=== PATIENT | male | born 1970 | race Caucasian/White ===

== ENCOUNTER 2019-05-10 13:17 | Inpatient (IN) ==
[2019-05-10] MEDS ORDERED: Isovue-370 500 ML BOTTLE IVP ONE (13:52)
[2019-05-10] MEDS ORDERED: 0.9 % Sodium Chloride 1,000 ML IVC ONE (13:52)
[2019-05-10] MEDS ORDERED: *HR* FentaNYL (PF) 100 MCG/2 ML VIAL IVP ONE ×2 (13:59→16:10)
--- NOTE | 2019-05-10 14:05 | Emergency Department Note ---
Disposition Clinical Impression: Lumbar back pain, Neurological deficit present Disposition: Admitted As Inpatient Condition: Good Referrals: NONE,PCP [Primary Care Provider] - Time of Disposition: 17:33 General Adult HPI - General Chief complaint: ED Neuro Symptoms/Deficit Stated complaint: back pain, L N/T Time Seen by Provider: 05/10/19 13:40 Source: patient Mode of arrival: ambulatory Limitations: no limitations Nursing Notes Reviewed: Yes Vital Signs Reviewed: Yes - History of Present Illness HPI Narrative: Patient is a 49-year-old male that presents emergency Department with reports of chronic low back pain. Patient states he is also had pain down into his left leg. Patient states that this is gotten worse. Patient states that he had a fall a few days ago and his pain has gotten worse since then. Patient states that he has had a prior lumbar surgery with pins, screws and a plate. Patient states that he is also having some numbness to his left upper hand. Patient denies hitting his head or any loss of consciousness during assault. Patient denies being on any blood thinners. Patient states that he has not had any loss of bowel or bladder control. Pain Scale: 9 - Related Data Allergies Allergy/AdvReac Type Severity Reaction Status Date / Time codeine Allergy Anaphylaxis Verified 05/10/19 14:09 Iodinated Contrast Media Allergy Seizure Verified 05/10/19 14:09 Penicillins Allergy Anaphylaxis Verified 05/10/19 14:09 All systems ED: reviewed and negative except as stated. Constitutional: Denies: fever Cardiovascular: Denies: chest pain Respiratory: Denies: dyspnea Gastrointestinal: Denies: abdominal pain, nausea, vomiting Genitourinary: Denies: urgency, dysuria, frequency, hematuria Neurological: Reports: numbness (Left hand and left lower extremity.) Past Medical History - Past Medical History Medical history: Reports: non-contributory Psychiatric history: Reports: bipolar, PTSD - Social History Smoking Status: Current some day smoker Alcohol use: Reports: none Drug use: Reports: none Physical Exam - General Limitations: no limitations General appearance: alert, in no apparent distress - Head Head exam: atraumatic, normocephalic - Eye Eye exam: Present: normal appearance, EOMI - Neck Neck exam: Present: normal inspection, full ROM, trachea midline - Respiratory Respiratory exam: Present: normal lung sounds bilaterally. Absent: respiratory distress, wheezes - Cardiovascular Cardiovascular exam: Present: regular rate, normal rhythm, normal heart sounds, +S1, +S2 - Abdominal Exam Abdominal exam: Present: soft, Non-Tender, normal bowel sounds - Neurological Exam Neurological exam: Present: alert, oriented X3 - Expanded Neurological Exam Cranial nerves: EOM function (II, III, IV, ): Normal, facial sensation (V): Normal, facial palsy (VII): Normal, gag reflex (IX): Normal, spinal accessory function (XI): Normal, tongue deviation (XII): Normal Cerebellar function: finger to nose: Normal, heel to sandra: Abnormal Left Motor strength - LUE: 4/5 Motor strength - RUE: 5/5 Motor strength - LLE: 4/5 Motor strength - RLE: 5/5 Upper motor neuron exam: pronator drift: Absent bilaterally Sensory exam upper extremity: light touch: Abnormal Left Sensory exam lower extremity: light touch: Abnormal Left Coma Scale Eye Opening: Spontaneous Coma Scale Motor Response: Obeys Commands Coma Scale Verbal Response: Oriented Coma Scale Total: 15 - Psychiatric Psychiatric exam: Present: normal affect, normal mood - Skin Skin exam: Present: warm, dry, intact Course Vital Signs Temperature 98.4 F 05/10/19 13:33 Pulse Rate 112 05/10/19 13:33 Respiratory Rate 18 05/10/19 13:33 Blood Pressure 155/103 05/10/19 13:33 O2 Sat by Pulse Oximetry 92 05/10/19 13:33 Temperature 98.4 F 05/10/19 13:33 Pulse Rate 92 05/10/19 17:58 Respiratory Rate 17 05/10/19 17:58 Blood Pressure 151/86 05/10/19 17:58 O2 Sat by Pulse Oximetry 97 05/10/19 17:58 Oxygen Delivery Oxygen Delivery Room Air Medical Decision Making - MDM Narrative Medical decision making narrative: Due the patient presenting to the emergency department with reports of back pain and numbness in the left lower extremity and left upper a tremulous obtain basic laboratory testing, CT the head and a CT of the lumbar spine. We will also obtain a CT of the cervical spine at the request of the hospitalist. All imaging was negative for acute findings. Laboratory testing was relatively unremarkable. EKG did not show any acute ischemic changes. Patient had weakness and decreased sensation of the upper and lower extremity on the left. Patient is otherwise stable without any complaints. Patient will require admission to the hospital for further neuro workup. Patient has received multiple doses of analgesics here in the emergency department. His requested a meal tray this will be ordered. Patient was accepted by Dr. Mark. - Medical Records Medical records reviewed: Yes I reviewed the patient's medical records. - Lab Data Lab results reviewed: Yes I reviewed the patient's lab results. Result diagrams: 05/10/19 14:44 05/10/19 14:44 Lab Results 05/10/19 05/10/19 05/10/19 Range/Units 14:44 14:44 14:44 WBC 9.0 (4.3-11.1) K/mcL RBC 4.66 (4.19-5.50) M/mcL Hgb 13.4 (12.9-16.9) g/dL Hct 42.8 (37.5-50.1) % MCV 91.8 (83.0-100.0) fL MCH 28.8 (28.0-33.3) pg MCHC 31.3 L (31.6-35.5) g/dL RDW 13.2 (11.5-14.5) % Plt Count 289 (140-400) K/mcL MPV 9.8 (9.4-12.4) fL PT 10.0 (9.4-12.1) Seconds INR 0.9 APTT 32.3 (26.0-36.0) Seconds Sodium 136 (136-145) mEq/L Potassium 4.2 (3.5-5.1) mEq/L Chloride 104 (98-107) mEq/L Carbon Dioxide 26 (23-29) mEq/L BUN 17 (6-20) mg/dL Creatinine 0.67 L (0.70-1.30) mg/dL Est GFR ( Amer) > 60 (> 60) Est GFR (Non-Af Amer) > 60 (> 60) BUN/Creatinine Ratio 25 (6-26) Glucose 122 H (70-105) mg/dL Calculated Osmolality 285 (280-300) Calcium 9.8 (8.6-10.3) mg/dL Troponin I < 0.03 (< 0.04) ng/mL - Radiology Data Radiology results reviewed: Yes I reviewed the patient's radiology results. Lumbar Spine CT 05/10/19 13:56 IMPRESSION: Compression deformity status post vertebral body augmentation involving T12 through L3. Age-indeterminate subtle compression at L4. Status post posterior spinal fusion at L5-S1. No acute intracranial pathology. No intracranial hemorrhage, mass effect, or midline shift. D/ / Demond Barrera MD / Demond Barrera MD Interpreting Provider: Demond Barrera MD Head CT 05/10/19 13:59 IMPRESSION: Compression deformity status post vertebral body augmentation involving T12 through L3. Age-indeterminate subtle compression at L4. Status post posterior spinal fusion at L5-S1. No acute intracranial pathology. No intracranial hemorrhage, mass effect, or midline shift. D/ / Demond Barrera MD / Demond Barrera MD Interpreting Provider: Demond Barrera MD Cervical Spine CT 05/10/19 16:10 IMPRESSION: No acute abnormality of the cervical spine. No acute significant degenerative changes, no canal or foraminal stenosis D/ / John Morelos MD / John Morelos MD Interpreting Provider: John Morelos MD - EKG Data EKG #1 EKG attestation: Yes I reviewed and interpreted this EKG. EKG results narrative: Patient's EKG showed sinus tachycardia at a rate of 106 bpm, NV interval 159, QRS duration 78, QTc of 431. There is no evidence of STEMI on EKG. Attestation Statement - Attestation Attestation: I, Albert Ramirez, examined this patient and my medical decision-making was reviewed with the PEELER OPERATOR/PA/Advanced Practice Nurse/Resident Physician. I agree with the documented findings, disposition and treatment plan as described except to the extent set forth below. 49-year-old male presents emergency Department with concerns of left upper extremity and left lower extremity weakness. He also reports having a fall within the past week and had worsening of his back pain since that time. He does have a history of chronic back pain and status post lumbar spine surgery. Patient denies incontinence of bowel or bladder, he denies lack of sensation in the perineal area or of the left lower show any. He does report having weakness of the left upper and left lower extremity. He is still able ambulate despite the pain. Patient has a history of IV drug use however this is not within the past year. CT of the head was negative for acute fracture or intracranial hemorrhage. CT of the cervical and lumbar spine was negative for acute fracture. Patient will require further evaluation with MRI of the head for possible stroke versus MRI of the lumbar spine for further evaluation of possible disc herniation. Unlikely that the patient has cauda equina without evidence of urinary or bowel incontinence. Cauda equina symptoms would not cause of left upper extremity and left lower extremity weakness. Patient will be admitted to the hospitalist for further care and evaluation. Patient was updated regarding his results.I reviewed the EKG with the resident and agree with the interpretation.
[2019-05-10 15:00] LABS: Hematocrit 42.8 % (37.5-50.1); Hemoglobin 13.4 g/dL (12.9-16.9); Mean Corpuscular HGB Conc 31.3 g/dL (31.6-35.5); Mean Corpuscular Hemoglobin 28.8 pg (28.0-33.3); Mean Corpuscular Volume 91.8 fL (83.0-100.0); Mean Platelet Volume 9.8 fL (9.4-12.4); Platelet Count 289 K/mcL (140-400); Red Blood Count 4.66 M/mcL (4.19-5.50); Red Cell Distribution Width 13.2 % (11.5-14.5)
[2019-05-10 15:09] LABS: INR 0.9
[2019-05-10 15:12] LABS: Activated Partial Thrombo Time 32.3 Seconds (26.0-36.0)
[2019-05-10 15:19] LABS: BUN/Creatinine Ratio 25 (6-26); Blood Urea Nitrogen 17 mg/dL (6-20); Calcium 9.8 mg/dL (8.6-10.3); Carbon Dioxide 26 mEq/L (23-29); Chloride 104 mEq/L (98-107); Glucose 122 mg/dL (70-105); Osmolality,Calculated 285 (280-300); Potassium 4.2 mEq/L (3.5-5.1); Sodium 136 mEq/L (136-145); eGFR For African Americans > 60 (> 60); eGFR For Non-African Americans > 60 (> 60)
[2019-05-10 15:20] LABS: Troponin I < 0.03 ng/mL (< 0.04)
[2019-05-10] MEDS ORDERED: Naloxone 0.4 MG/ML INJ IVP PRN (17:28)
[2019-05-10] MEDS ORDERED: Ondansetron 4 MG/2 ML VIAL IVP PRN (17:28)
[2019-05-10] MEDS ORDERED: Acetaminophen 325 MG TABLET PO PRN (17:30)
[2019-05-10] MEDS ORDERED: Morphine Sulfate 2 MG/ML SYRINGE IVP PRN (17:52)
[2019-05-10] MEDS ORDERED: Ipratropium/Albuterol Neb 3 ML IH PRN (17:53)
--- NOTE | 2019-05-10 18:00 | Internal Med History&Physical ---
Date of Encounter: 05/10/19 Time of Encounter: 18:00 Internal Medicine - H&P: HPI Chief complaint: severe back pain, tingling and numbness of fingers and toes on left side History of present illness: Mr. Meredith is a 49 year old male with pmh of tobacco abuse, chronic back pain with old compression fractures presenting with complaints of intractable back pain and tingling in the fingers and toes on his left side for the past 1 week. Patient says he has had compression fractures in the past due to osteopenia and last surgery was in 2015. He reports falling about 7 days ago after he stepped into a hole on the road and since then he began to notice tingling in the fi ngers of his left hand which has progressed to a numbness. He also complains of severe low back pain with any activity. He denies any other acute symptoms. In the ER, a CT showed Chronic compression deformities with loss of height at T12, L1, L2, and L3. Status post vertebral body augmentation of the aforementioned vertebral bodies. There is cement leak into the intervertebral disc spaces at L1-L2 and L3-L4. Subtle compression at L4, age indeterminate. Patient is being admitted for pain control and assessment by spine surgery Past Med Surg Social Fam HX - Past Medical History Medical history: non-contributory Psychiatric history: bipolar, PTSD - Social History Smoking Status: Current some day smoker Alcohol use: none Drug use: none Internal Medicine - H&P: Meds Allergy/AdvReac Type Severity Reaction Status Date / Time codeine Allergy Anaphylaxis Verified 05/10/19 14:09 Iodinated Contrast Media Allergy Seizure Verified 05/10/19 14:09 Penicillins Allergy Anaphylaxis Verified 05/10/19 14:09 All Systems PM: A 10-system review of systems was performed and is negative for pertinent findings except as documented above in the HPI. - Constitutional Constitutional: no chills, no fever(s), no night sweats - EENT Eyes: no change in vision, no discharge, no pain, no photophobia Ears: no ear discharge, no ear pain, no tinnitus Nose, mouth and throat: no dysphagia, no nasal discharge, no neck pain, no sore throat - Cardiovascular Cardiovascular ROS IM: no chest pain, no diaphoresis, no dyspnea, no lightheadedness, no palpitations, no syncope - Respiratory Respiratory: no cough, no dyspnea, no wheezing, no excessive phlegm production - Gastrointestinal Gastrointestinal: no abdominal pain, no diarrhea, no hematemesis, no hematochezia, no melena, no nausea, no vomiting - Musculoskeletal Musculoskeletal ROS IM: back pain, no numbness, no tingling - Integumentary Integumentary IM: no rash, no unusual bruising - Neurological Neurological ROS: tingling, no confusion, no convulsions, no focal weakness, no numbness, no tremor(s) - Hematologic/Lymphatic Hematologic/Lymphatic: no easy bruising - Constitutional Vitals: Temp Pulse Resp BP Pulse Ox 98.4 F 112 18 155/103 92 05/10/19 13:33 05/10/19 13:33 05/10/19 13:33 05/10/19 13:33 05/10/19 13:33 Exam: NAD - Head Head exam: Present: atraumatic, normocephalic - Eye Eye exam: Present: PERRL, conjuntiva pink, sclera anicteric Pupils: Present: PERRL - Neck Neck exam general surgery: Present: supple, trachea midline. Absent: lymphadenopathy - Respiratory Respiratory exam: Present: CTAB. Absent: accessory muscle use, rales, rhonchi, wheezes - Cardiovascular Cardiovascular exam: Present: RRR, +S1, +S2. Absent: diastolic murmur, gallop, rubs, systolic murmur - GI/Abdominal GI/Abdominal exam: Present: normal bowel sounds, soft, no peritoneal signs. Absent: distended, tenderness - Extremities Exam Extremities exam: Present: warm, radial pulses palpable and symmetrical. Absent: calf tenderness, cyanotic, pedal edema - Neurological Exam Neurological exam: Present: CN II-XII intact, oriented X3, no focal deficits. Absent: pronater drift, facial droop, speech deficit - Skin Skin exam: Present: dry, intact Internal Med - H&P Results - Labs CBC & Chem 7: 05/10/19 14:44 05/10/19 14:44 Labs: Short CBC 05/10/19 Range/Units 14:44 WBC 9.0 (4.3-11.1) K/mcL Hgb 13.4 (12.9-16.9) g/dL Hct 42.8 (37.5-50.1) % Plt Count 289 (140-400) K/mcL BMP 05/10/19 14:44 Sodium 136 Potassium 4.2 Chloride 104 Carbon Dioxide 26 BUN 17 Creatinine 0.67 L Glucose 122 H Calcium 9.8 Cardiac Enzymes 05/10/19 Range/Units 14:44 Troponin I < 0.03 (< 0.04) ng/mL - Impressions ITS Impressions Lumbar Spine CT 05/10/19 13:56 IMPRESSION: Compression deformity status post vertebral body augmentation involving T12 through L3. Age-indeterminate subtle compression at L4. Status post posterior spinal fusion at L5-S1. No acute intracranial pathology. No intracranial hemorrhage, mass effect, or midline shift. D/ / Demond Barrera MD / Demond Barrera MD Interpreting Provider: Demond Barrera MD Head CT 05/10/19 13:59 IMPRESSION: Compression deformity status post vertebral body augmentation involving T12 through L3. Age-indeterminate subtle compression at L4. Status post posterior spinal fusion at L5-S1. No acute intracranial pathology. No intracranial hemorrhage, mass effect, or midline shift. D/ / Demond Barrera MD / Demond Barrera MD Interpreting Provider: Demond Barrera MD Cervical Spine CT 05/10/19 16:10 IMPRESSION: No acute abnormality of the cervical spine. No acute significant degenerative changes, no canal or foraminal stenosis D/ / John Morelos MD / John Morelos MD Interpreting Provider: John Morelos MD - Assessment and Plan (1) Lumbar back pain Current Visit: Yes Status: Acute Assessment and plan: Pt has complaints of low back pain with tingling and numbness in fingers and toes on left side CT showed Chronic compression deformities with loss of height at T12, L1, L2, and L3. Status post vertebral body augmentation of the aforementioned vertebral bodies. There is cement leak into the intervertebral disc spaces at L1-L2 and L3-L4. Subtle compression at L4, age indeterminate. Pain control as needed, spine consulted. Obtain MRI spine to r/o new vertebral body fractures s/p fall (2) Preoperative clearance Current Visit: Yes Status: Acute Assessment and plan: Pt has good functional status with METS> 4. Can proceed for surgery if indicated at low risk. No further cardiovascular testing indicated (3) DVT prophylaxis Current Visit: Yes Status: Acute Assessment and plan: heparin sc - Time Spent With Patient Total time spent is greater than 50% in coordination of care (as documented) at patient's floor/unit and/or counseling patient:
[2019-05-10] MEDS: 0.9 % Sodium Chloride 1,000 ML IVC SCH (21:22)
[2019-05-10] MEDS: *HR* OxyCODONE/APAP 5/325 TABLET PO PRN (21:22)
[2019-05-10] MEDS: *HR* Heparin 5,000 UNIT/ML VIAL SQ SCH (21:27)
[2019-05-11] MEDS: *HR* OxyCODONE/APAP 5/325 TABLET PO PRN ×5 (04:32→22:20)
[2019-05-11] MEDS: *HR* Heparin 5,000 UNIT/ML VIAL SQ SCH ×2 (04:32→18:11)
[2019-05-11 06:10] LABS: Basophils # 0.1 K/mcL (0.0-0.2); Basophils % 0.8 %; Eosinophils # 0.4 K/mcL (0.0-0.6); Eosinophils % 4.9 %; Hematocrit 42.2 % (37.5-50.1); Hemoglobin 13.1 g/dL (12.9-16.9); Immature Granulocytes % 0.9 % (0-4); Lymphocytes # 2.2 K/mcL (0.6-4.6); Lymphocytes % 29.6 %; Mean Corpuscular Hemoglobin 29.2 pg (28.0-33.3); Mean Corpuscular Volume 94.2 fL (83.0-100.0); Mean Platelet Volume 9.7 fL (9.4-12.4); Monocytes % 13.6 %; Neutrophils # 3.7 K/mcL (1.6-8.9); Platelet Count 276 K/mcL (140-400); Red Blood Count 4.48 M/mcL (4.19-5.50); Red Cell Distribution Width 13.3 % (11.5-14.5); Segmented Neutrophils % 50.2 %; White Blood Count 7.4 K/mcL (4.3-11.1)
[2019-05-11 06:28] LABS: BUN/Creatinine Ratio 27 (6-26); Blood Urea Nitrogen 17 mg/dL (6-20); Carbon Dioxide 23 mEq/L (23-29); Chloride 105 mEq/L (98-107); Glucose 116 mg/dL (70-105); Magnesium 1.7 mg/dL (1.6-2.6); Osmolality,Calculated 289 (280-300); Phosphorous 3.9 mg/dL (2.7-4.5); Potassium 4.3 mEq/L (3.5-5.1); Sodium 138 mEq/L (136-145); eGFR For African Americans > 60 (> 60); eGFR For Non-African Americans > 60 (> 60)
[2019-05-11] MEDS: 0.9 % Sodium Chloride 1,000 ML IVC SCH ×2 (06:44→18:48)
--- NOTE | 2019-05-11 10:08 | Internal Med Progress Note ---
Hospitalist Progress Note - Encounter Date of Encounter: 05/11/19 Time of Encounter: 09:00 - Subjective Interval History: No acute events overnight - Exam Vitals: Temp Pulse Resp BP Pulse Ox 97.9 F 82 16 101/66 96 05/11/19 07:06 05/11/19 07:06 05/11/19 09:25 05/11/19 07:06 05/11/19 09:25 Exam: General appearance: Present: A&O X 3, no acute distress Head exam: Present: normocephalic Respiratory exam: Present: CTAB. Absent: accessory muscle use, rales, rhonchi, wheezes Cardiovascular exam: Present: RRR, +S1, +S2. Absent: diastolic murmur, gallop, rubs, systolic murmur GI/Abdominal exam: Soft, NT, ND, +BS Extremities exam: Absent: pedal edema Neurological exam: Alert to person and place. Left sided weakness - Assessment and Plan (1) Lumbar back pain Current Visit: Yes Status: Acute Assessment and Plan: Pt has complaints of low back pain with tingling and numbness in fingers and toes on left side CT showed Chronic compression deformities with loss of height at T12, L1, L2, and L3. Status post vertebral body augmentation of the aforementioned vertebral bodies. There is cement leak into the intervertebral disc spaces at L1-L2 and L3-L4. Subtle compression at L4, age indeterminate. MRI cervical, thoracic and lumbar spine showed no acute vertebral body pathology. All chronic changes Spine recommend rehab and PT/OT consult (2) Preoperative clearance Current Visit: Yes Status: Acute Assessment and Plan: Pt has good functional status with METS> 4. Can proceed for surgery if indicated at low risk. No further cardiovascular test ing indicated (3) DVT prophylaxis Current Visit: Yes Status: Acute Assessment and Plan: heparin sc - Time Spent with Patient Total time spent is greater than 50% in coordination of care (as documented) at patient's floor/unit and/or counseling patient: Internal Medicine: Result - Labs CBC & Chem 7: 05/11/19 05:21 05/11/19 05:21 Labs: Short CBC 05/10/19 05/11/19 Range/Units 14:44 05:21 WBC 9.0 7.4 (4.3-11.1) K/mcL Hgb 13.4 13.1 (12.9-16.9) g/dL Hct 42.8 42.2 (37.5-50.1) % Plt Count 289 276 (140-400) K/mcL Neutrophils # 3.7 (1.6-8.9) K/mcL BMP 05/10/19 05/11/19 14:44 05:21 Sodium 136 138 Potassium 4.2 4.3 Chloride 104 105 Carbon Dioxide 26 23 BUN 17 17 Creatinine 0.67 L 0.64 L Glucose 122 H 116 H Calcium 9.8 9.0 Cardiac Enzymes 05/10/19 Range/Units 14:44 Troponin I < 0.03 (< 0.04) ng/mL - ABG Interpretation ABG results: PT/INR, D-dimer PT 10.0 Seconds (9.4-12.1) 05/10/19 14:44 - Impressions Impressions Tibia/Fibula X-Ray 05/10/19 00:00 IMPRESSION: No radiopaque foreign body identified at either leg. D/ /10/2019 18:42:27 Francisco J Farr MD / nghia Interpreting Provider: Francisco J Farr MD Tibia/Fibula X-Ray 05/10/19 00:00 IMPRESSION: No radiopaque foreign body identified at either leg. D/ /10/2019 18:42:27 Francisco J Farr MD / nghia Interpreting Provider: Francisco J Farr MD Lumbar Spine CT 05/10/19 13:56 IMPRESSION: Compression deformity status post vertebral body augmentation involving T12 through L3. Age-indeterminate subtle compression at L4. Status post posterior spinal fusion at L5-S1. No acute intracranial pathology. No intracranial hemorrhage, mass effect, or midline shift. D/ / Demond Barrera MD / Demond Barrera MD Interpreting Provider: Demond Barrera MD Head CT 05/10/19 13:59 IMPRESSION: Compression deformity status post vertebral body augmentation involving T12 through L3. Age-indeterminate subtle compression at L4. Status post posterior spinal fusion at L5-S1. No acute intracranial pathology. No intracranial hemorrhage, mass effect, or midline shift. D/ / Demond Barrera MD / Demond Barrera MD Interpreting Provider: Demond Barrera MD Cervical Spine CT 05/10/19 16:10 IMPRESSION: No acute abnormality of the cervical spine. No acute significant degenerative changes, no canal or foraminal stenosis D/ / John Morelos MD / John Morelos MD Interpreting Provider: John Morelos MD Cervical Spine MRI 05/10/19 17:26 IMPRESSION: 1. No acute abnormality of the cervical spine. 2. Mild bilateral C7 neural foraminal narrowing secondary to C6-7 uncovertebral hypertrophy. D/ / Francisco Vick / Francisco Vick Interpreting Provider: Francisco Vick Lumbar Spine MRI 05/10/19 17:26 IMPRESSION: 1. No acute abnormality of the lumbar spine. 2. Chronic T12, L1, and L3 mild compression deformities and changes of prior T12 through L3 vertebral plasties. 3. Grade 1 anterolisthesis of L5 on S1 status post prior bilateral posterior metallic fixation with resultant disc bulge uncovering causing moderate bilateral L5 neural foraminal narrowing. 4. Mild degenerative changes at L1-2 and L2-3. D/ / Francisco Vick / Francisco Vick Interpreting Provider: Francisco Vick Thoracic Spine MRI 05/10/19 17:26 IMPRESSION: 1. No acute abnormality of the thoracic spine. 2. Chronic T12 and L1 compression fracture status post prior vertebroplasty. 3. Mild spinal canal stenosis at T10-11 and T11-12 secondary to disc bulges. D/ / Francisco Vick / Francisco Vick Interpreting Provider: Francisco Vick Consult Discharge Plan - Plan Referrals: NONE,PCP [Primary Care Provider] -
[2019-05-11] MEDS ORDERED: *HR* OxyCODONE/APAP 5/325 TABLET PO PRN (15:00)
[2019-05-12] MEDS: *HR* OxyCODONE/APAP 5/325 TABLET PO PRN ×5 (03:55→20:29)
[2019-05-12] MEDS: *HR* Heparin 5,000 UNIT/ML VIAL SQ SCH ×2 (05:16→18:19)
--- NOTE | 2019-05-12 09:03 | Internal Med Progress Note ---
Hospitalist Progress Note - Encounter Date of Encounter: 05/12/19 Time of Encounter: 09:03 - Subjective Interval History: No acute events overnight - Exam Vitals: Temp Pulse Resp BP Pulse Ox 98.8 F 87 16 112/63 94 05/12/19 03:46 05/12/19 03:46 05/12/19 03:46 05/12/19 03:46 05/12/19 03:46 Exam: General appearance: Present: A&O X 3, no acute distress Head exam: Present: normocephalic Respiratory exam: Present: CTAB. Absent: accessory muscle use, rales, rhonchi, wheezes Cardiovascular exam: Present: RRR, +S1, +S2. Absent: diastolic murmur, gallop, rubs, systolic murmur GI/Abdominal exam: Soft, NT, ND, +BS Extremities exam: Absent: pedal edema Neurological exam: Alert to person and place. Left sided weakness - Assessment and Plan (1) Lumbar back pain Current Visit: Yes Status: Acute Assessment and Plan: Pt has complaints of low back pain with tingling and numbness in fingers and toes on left side CT showed Chronic compression deformities with loss of height at T12, L1, L2, and L3. Status post vertebral body augmentation of the aforementioned vertebral bodies. There is cement leak into the intervertebral disc spaces at L1-L2 and L3-L4. Subtle compression at L4, age indeterminate. MRI cervical, thoracic and lumbar spine showed no acute vertebral body pathology. All chronic changes Spine recommend rehab and PT/OT consult PT/OT recommending rehab. Patient will likely be here till next week tuesday (2) Preoperative clearance Current Visit: Yes Status: Acute Assessment and Plan: Pt has good functional status with METS> 4. Can proceed for surgery if indicated at low risk. No further cardiovascular testing indicated (3) DVT prophylaxis Current Visit: Yes Status: Acute Assessment and Plan: heparin sc - Time Spent with Patient Total time spent is greater than 50% in coordination of care (as documented) at patient's floor/unit and/or counseling patient: Internal Medicine: Result - Labs CBC & Chem 7: 05/11/19 05:21 05/11/19 05:21 - ABG Interpretation ABG results: PT/INR, D-dimer PT 10.0 Seconds (9.4-12.1) 05/10/19 14:44 - Impressions Impressions Tibia/Fibula X-Ray 05/10/19 00:00 IMPRESSION: No radiopaque foreign body identified at either leg. D/ /10/2019 18:42:27 Francisco J Farr MD / nghia Interpreting Provider: Francisco J Farr MD Tibia/Fibula X-Ray 05/10/19 00:00 IMPRESSION: No radiopaque foreign body identified at either leg. D/ : / 05/10/2019 18:42:27 Francisco J Farr MD / nghia Interpreting Provider: Francisco J Farr MD Consult Discharge Plan - Plan Referrals: NONE,PCP [Primary Care Provider] -
--- NOTE | 2019-05-12 10:19 | Spine Progress Note ---
Date of Encounter: 05/12/19 Time of Encounter: 16:40 - Assessment and Plan (1) History of vertebral compression fracture Current Visit: Yes Status: Acute On exam he is awake and alert in mild distress secondary to back pain. Afebrile vital signs stable. He is neurovascularly intact with regard to his bilateral lower extremities. He has no clonus. His hips move symmetrically. He has no cyanosis or edema. MRI of the lumbar spine reveals prior kyphoplasty's 12 to L3. There is no evidence of acute fractures. There is evidence of previous posterior lumbar interbody fusion at L5-S1 with no apparent hardware complications. There are multilevel degenerative changes seen in multilevel foraminal stenosis to some degree and disc desiccation. Impression: 1) history of lumbar fusion 2) history of vertebral compression fractures with kyphoplasty's. 3) osteopenia Plan: There are no indications for immediate surgical intervention. He has no a cute fractures. I suggested outpatient follow-up with pain management for chronic pain/failed back surgeries. This may include consideration for interventional treatment such as spinal cord stimulator. He would also benefit from in-house and outpatient physical therapy and rehabilitation. (2) Status post lumbar spinal fusion Current Visit: Yes Status: Chronic (3) History of kyphoplasty Current Visit: Yes Status: Acute Subjective Principal diagnosis: History of vertebral compression fractures, history of lumbar fusion Interval history: Patient is a 49-year-old male who presented to the emergency Department with reports of chronic low back pain. He also had some left lower extremity r adicular symptoms after a fall. We are asked to see due to history of multiple back surgeries and MRI abnormalities. He rates his pain a 6 on a pain scale. He denies bowel bladder symptomatology. Objective Vital signs: Vital Signs Temp Pulse Resp BP Pulse Ox 05/12/19 03:46 98.8 F 87 16 112/63 94 05/11/19 23:38 16 96 05/11/19 23:24 98.1 F 91 16 126/60 96 05/11/19 20:16 16 98 05/11/19 18:23 97.5 F L 96 16 158/63 96 05/11/19 16:29 16 95 05/11/19 15:35 98.4 F 92 16 118/71 94 05/11/19 11:25 16 94 05/11/19 11:16 98.4 F 86 16 104/65 94 Intake and Output 05/11/19 05/12/19 05/12/19 23:59 07:59 15:59 Intake Total 1240 / 2960 240 / 240 Balance 1240 / 2960 240 / 240 Intake: IV Fluids 1000 / 2000 0.9 % Sodium Chloride 1,000 ML 1000 / 2000 @ 100 mls/hr IVC .Q10H [facility] Rx#: [id number] Oral 240 / 960 240 / 240 Other: Meal Dinner Breakfast Percent of Meal Consumed 100% 95% Weight 90 kg Patient Weight 05/12/19 23:59 Weight 90 kg - Labs CBC & BMP: 05/11/19 05:21 05/11/19 05:21 Labs: Abnormal lab results MCHC 31.0 g/dL (31.6-35.5) L 05/11/19 05:21 Creatinine 0.64 mg/dL (0.70-1.30) L 05/11/19 05:21 BUN/Creatinine Ratio 27 (6-26) H 05/11/19 05:21 Glucose 116 mg/dL (70-105) H 05/11/19 05:21 Consult Discharge Plan - Plan Referrals: NONE,PCP [Primary Care Provider] -
[2019-05-12] MEDS: Nicotine 21 MG PATCH.TD24 TD SCH (13:13)
[2019-05-12] MEDS ORDERED: hydrOXYzine pamoate 25 MG CAPSULE PO PRN (16:14)
[2019-05-12] MEDS: Lithium Carbonate 300 MG CAPSULE PO SCH (20:29)
[2019-05-12] MEDS: carBAMazepine 200 MG TABLET PO SCH (20:29)
--- NOTE | 2019-05-13 00:17 | Electrocardiograph Report ---
[facility] Test Date: 2019-05-10 Pat Name: Robel Meredith Department: EXAM14 Room: 3B63 Gender: M [employer] Supervisor: : 1970 Requested By: Albert Ramirez Order Number: [id number] Reading MD: Jhony Delgado Measurements Intervals Ecru Rate: 106 P: 72 MT: 159 QRS: 50 QRSD: 78 T: 63 QT: 324 QTc: 431 Interpretive Statements Sinus tachycardia Electronically Signed On 05-13-2019 0:15:21 EDT by Jhony Delgado
[2019-05-13] MEDS: *HR* OxyCODONE/APAP 5/325 TABLET PO PRN ×5 (01:58→21:01)
[2019-05-13] MEDS: Nicotine 21 MG PATCH.TD24 TD SCH (08:41)
[2019-05-13] MEDS: *HR* Heparin 5,000 UNIT/ML VIAL SQ SCH ×2 (08:41→16:56)
[2019-05-13] MEDS: carBAMazepine 200 MG TABLET PO SCH ×2 (08:42→21:01)
[2019-05-13] MEDS: Lithium Carbonate 300 MG CAPSULE PO SCH ×2 (08:42→21:01)
[2019-05-13] MEDS: ARIPiprazole 10 MG TABLET PO SCH (08:42)
--- NOTE | 2019-05-13 13:37 | Internal Med Progress Note ---
Hospitalist Progress Note - Encounter Date of Encounter: 05/13/19 Time of Encounter: 10:00 - Subjective Interval History: No acute events overnight - Exam Vitals: Temp Pulse Resp BP Pulse Ox 98.2 F 92 16 129/76 94 05/13/19 11:46 05/13/19 11:46 05/13/19 11:46 05/13/19 11:46 05/13/19 11:46 Exam: General appearance: Present: A&O X 3, no acute distress Head exam: Present: normocephalic Respiratory exam: Present: CTAB. Absent: accessory muscle use, rales, rhonchi, wheezes Cardiovascular exam: Present: RRR, +S1, +S2. Absent: diastolic murmur, gallop, rubs, systolic murmur GI/Abdominal exam: Soft, NT, ND, +BS Extremities exam: Absent: pedal edema Neurological exam: Alert to person and place. Left sided weakness - Assessment and Plan (1) Lumbar back pain Current Visit: Yes Status: Acute Assessment and Plan: Pt has complaints of low back pain with tingling and numbness in fingers and toes on left side CT showed Chronic compression deformities with loss of height at T12, L1, L2, and L3. Status post vertebral body augmentation of the aforementioned vertebral bodies. There is cement leak into the intervertebral disc spaces at L1-L2 and L3-L4. Subtle compression at L4, age indeterminate. MRI cervical, thoracic and lumbar spine showed no acute vertebral body pathology. All chronic changes Spine recommend rehab and PT/OT consult PT/OT recommending rehab. Patient will likely be here till next week tuesday (2) Preoperative clearance Current Visit: Yes Status: Acute Assessment and Plan: Pt has good functional status with METS> 4. Can proceed for surgery if indicated at low risk. No further cardiovascular testing indicated (3) DVT prophylaxis Current Visit: Yes Status: Acute Assessment and Plan: heparin sc - Time Spent with Patient Total time spent is greater than 50% in coordination of care (as documented) at patient's floor/unit and/or counseling patient: Internal Medicine: Result - Labs CBC & Chem 7: 05/11/19 05:21 05/11/19 05:21 - ABG Interpretation ABG results: PT/INR, D-dimer PT 10.0 Seconds (9.4-12.1) 05/10/19 14:44 Consult Discharge Plan - Plan Referrals: NONE,PCP [Primary Care Provider] -
[2019-05-13] MEDS: Methyl Salicylate/Menthol 57 APPL/57 GM TUBE TP SCH ×2 (16:57→21:02)
[2019-05-14] MEDS: *HR* OxyCODONE/APAP 5/325 TABLET PO PRN ×6 (01:02→21:26)
[2019-05-14] MEDS: *HR* Heparin 5,000 UNIT/ML VIAL SQ SCH ×2 (06:14→17:22)
--- NOTE | 2019-05-14 08:31 | Internal Med Progress Note ---
Hospitalist Progress Note - Encounter Date of Encounter: 05/14/19 Time of Encounter: 09:00 - Subjective Interval History: No acute events overnight - Exam Vitals: Temp Pulse Resp BP Pulse Ox 97.8 F 100 20 134/71 96 05/14/19 08:15 05/14/19 08:15 05/14/19 08:15 05/14/19 08:15 05/14/19 08:15 Exam: General appearance: Present: A&O X 3, no acute distress Head exam: Present: normocephalic Respiratory exam: Present: CTAB. Absent: accessory muscle use, rales, rhonchi, wheezes Cardiovascular exam: Present: RRR, +S1, +S2. Absent: diastolic murmur, gallop, rubs, systolic murmur GI/Abdominal exam: Soft, NT, ND, +BS Extremities exam: Absent: pedal edema Neurological exam: Alert to person and place. Left sided weakness - Assessment and Plan (1) Lumbar back pain Current Visit: Yes Status: Acute Assessment and Plan: Pt has complaints of low back pain with tingling and numbness in fingers and toes on left side CT showed Chronic compression deformities with loss of height at T12, L1, L2, and L3. Status post vertebral body augmentation of the aforementioned vertebral bodies. There is cement leak into the intervertebral disc spaces at L1-L2 and L3-L4. Subtle compression at L4, age indeterminate. MRI cervical, thoracic and lumbar spine showed no acute vertebral body pathology. All chronic changes Spine recommend rehab and PT/OT consult PT/OT recommending rehab. Patient will likely be here till next week tuesday (2) Preoperative clearance Current Visit: Yes Status: Acute Assessment and Plan: Pt has good functional status with METS> 4. Can proceed for surgery if indicated at low risk. No further cardiovascular testing indicated (3) DVT prophylaxis Current Visit: Yes Status: Acute Assessment and Plan: heparin sc - Time Spent with Patient Total time spent is greater than 50% in coordination of care (as documented) at patient's floor/unit and/or counseling patient: Internal Medicine: Result - Labs CBC & Chem 7: 05/11/19 05:21 05/11/19 05:21 - ABG Interpretation ABG results: PT/INR, D-dimer PT 10.0 Seconds (9.4-12.1) 05/10/19 14:44 Consult Discharge Plan - Plan Referrals: NONE,PCP [Primary Care Provider] -
[2019-05-14] MEDS: Nicotine 21 MG PATCH.TD24 TD SCH (09:12)
[2019-05-14] MEDS: Methyl Salicylate/Menthol 57 APPL/57 GM TUBE TP SCH ×3 (09:13→20:11)
[2019-05-14] MEDS: ARIPiprazole 10 MG TABLET PO SCH (09:13)
[2019-05-14] MEDS: carBAMazepine 200 MG TABLET PO SCH ×2 (09:13→20:04)
[2019-05-14] MEDS: Lithium Carbonate 300 MG CAPSULE PO SCH ×2 (09:13→20:04)
[2019-05-14] MEDS ORDERED: *HR* LORazepam 1 MG TABLET PO ONE (20:26)
[2019-05-15 00:10] VITALS: BP 128/68
--- NOTE | 2019-05-15 00:33 | Event Note ---
Date of Encounter: 05/14/19 Time of Encounter: 19:30 Alerted by Charge Nurse MITA Fine that the patient has been leaving the unit to smoke outside. Went to see the patient to inform and educate him regarding hospital policy and how leaving the unit, especially to smoke, is against policy for the safety of the patients. Patient instructed that if he continued to be non-compliant then the next time he left the unit w/o someone from staff then his IV access would be removed, he would be considered AMA, and he would have to return through the ED. Patient expressed reluctance but understanding. Nurse instructed to continue monitoring this patient closely and alert me immediately of any adverse changes or continued non-compliance. Alerted at 00:04 the patient states he fell in the shower. Nurse getting vitals. Charge nurse states patient walked out of the room to tell her that he fell he was in shower and landed on his buttocks. Fall unwitnessed. Went to see patient immediately who is seated on the side of the bed and appeared mildly altered. I informed the patient he was now a high falls risk and would not be permitted to leave his bed without assistance. Patient instructed to use his call light if he needed assistance or to use the restroom. Patient informed that his bed alarm would now be active. Patient also informed he would be taken to XR for imaging of his spine as well as a head CT. Will await results. Informed by the Charge Nurse that patient's cigarette pack was found in the room and Percocet pills were inside the cigarette pack wrapped in paper. Unclear if patient brought these into the facility or if he has been diverting the ordered pills while here to save and abuse. Two full pills and one partial pill that was cut into pie shapes were found. White powder found on bedside table in addition to a straw. Small pieces of a pill and powder were bagged as well as the straw. Security called. Percocet will be given to Security to hold. It appears the patient has been diverting medication for abuse. Patient is due to go to an ECF on discharge. ECF is to be made aware of this patient's medication diversion and abuse. Stat urine tox screen ordered to identify any narcotics other than opiates. Screen will be positive for opiates d/t ordered Percocet. Patient returned from XR/CT to find his cigarettes had been locked up by Security. Patient became adamant and abusive wanting his cigarettes back. When he was informed that he would receive them on discharge, patient stated he was leaving AMA. IV access removed and AMA paperwork signed. Patient walked to exit w/Security and [employer]. Automotive Buyer called ED to alert them of this patient and his drug diversion in the event he returns to the ED. I reviewed the CT and XR results at 01:44. CT shows no acute intracranial abnormality. XRs of the cervical spine, thoracic spine, lumbar spine, and sacrum/coccyx show height loss of the T10 and T11 vertebral body suspicious for minimal compression fractures. Vertebral body augmentation of T12-L3. Multilevel degenerative changes cervical, thoracic, and lumbar spine. Intact sacrum and coccyx. Alerted at 02:14 by the [place] Coordiantor that the pt. had returned to the ED. ED made aware of the pts. drug diversion and abuse. Informed Dr. Ng personally regarding patient's diversion. Discussed patient with Drs. Acosta and Kieran regarding diversion, prescription drug abuse, and pt. being back in the ED.
--- NOTE | 2019-05-15 11:29 | Discharge Summary ---
Date of Encounter: 05/15/19 Time of Encounter: 10:00 - Discharge Diagnosis (1) Lumbar back pain Priority: Primary Status: Acute Assessment and Plan: 49 year old male with pmh of tobacco abuse, chronic back pain with old compress ion fractures presenting with complaints of intractable back pain and tingling in the fingers and toes on his left side for the past 1 week. Patient says he has had compression fractures in the past due to osteopenia and last surgery was in 2016. He reports falling about 7 days ago after he stepped into a hole on the road and since then he began to notice tingling in the fingers of his left hand which has progressed to a numbness. He also complains of severe low back pain with any activity. He denies any other acute symptoms. In the ER, a CT showed Chronic compression deformities with loss of height at T12, L1, L2, and L3. Status post vertebral body augmentation of the aforementioned vertebral bodies. There is cement leak into the intervertebral disc spaces at L1-L2 and L3-L4. Subtle compression at L4, age indeterminate. Pt has complaints of low back pain with tingling and numbness in fingers and toes on left side. He was seen by spine surgery and PT and recommended for rehab and f/u with pain mgmt for a spine stimulator assessment/placement. He was noted to have percocet in his possession which he appeared to have been snorting. This may have been the percocet he was receiving in the hospital. He had also been disruptive and attempted to go out to smoke on multiple occasions. He signed out AMA when his drugs were confiscated by security. All his personal belongings were returned to him on discharge (2) Preoperative clearance Priority: Primary Status: Acute (3) DVT prophylaxis Priority: Primary Status: Acute Hospital course: Mr. Meredith is a 49 year old male - Time Spent with Patient Total time spent providing and/or coordinating discharge services: - Discharge Medications Prescriptions: No Action ARIPiprazole [Abilify] 10 mg PO DAILY carBAMazepine [Tegretol] 200 mg PO BID hydrOXYzine HCl [Hydroxyzine HCl] 50 mg PO Q4H PRN PRN Reason: Anxiety Umapine Carbonate 300 mg PO BID Meloxicam 7.5 mg PO DAILY Home Medications: ARIPiprazole [Abilify] 10 mg PO DAILY 05/11/19 [History] Umapine Carbonate 300 mg PO BID 05/11/19 [History] Meloxicam 7.5 mg PO DAILY 05/11/19 [History] carBAMazepine [Tegretol] 200 mg PO BID 05/11/19 [History] hydrOXYzine HCl [Hydroxyzine HCl] 50 mg PO Q4H PRN 05/11/19 [History] Allergies/Adverse Reactions: Allergy/AdvReac Type Severity Reaction Status Date / Time codeine Allergy Anaphylaxis Verified 05/10/19 14:09 Iodinated Contrast Media Allergy Seizure Verified 05/10/19 14:09 Penicillins Allergy Anaphylaxis Verified 05/10/19 14:09 Date of admission: 05/12/19 12:38 Primary care physician: PCP NONE Consults: 05/10/19 17:30 Consult to Orthopedic Surgery [CONS] Routine Consulting Provider: [facility] Reason for Consult: Lumbar compression fractures Call Completed: Yes 05/11/19 09:03 Consult to Occupational Therapy [CONS] Routine Comment: Evaluate, develop and implement POC Reason for Consult: weakness Does patient have active BEDREST order?: No Is patient medically & hemodynamically stable?: Yes Patient assessed for mobility or mobilized this visit?: No Consult to Physical Therapy [CONS] Routine Comment: Evaluate, develop and implement POC Reason for Consult: weakness Does patient have active BEDREST order?: No Is patient medically & hemodynamically stable?: Yes Patient assessed for mobility or mobilized this visit?: No 05/11/19 15:40 Consult to Director Of Financial Planning [CONS] Routine Reason for SW Consult: PT/OT RECOMMEND INPATIENT REHAB - Constitutional Vitals: Temp Pulse Resp BP Pulse Ox 98.0 F 106 16 128/68 94 05/15/19 00:00 05/15/19 00:00 05/15/19 00:00 05/15/19 00:00 05/15/19 00:00 Exam: General appearance: Present: A&O X 3, no acute distress Head exam: Present: normocephalic Respiratory exam: Present: CTAB. Absent: accessory muscle use, rales, rhonchi, wheezes Cardiovascular exam: Present: RRR, +S1, +S2. Absent: diastolic murmur, gallop, rubs, systolic murmur GI/Abdominal exam: Soft, NT, ND, +BS Extremities exam: Absent: pedal edema Neurological exam: Alert to person and place. Left sided weakness - Patient Status Disposition: Left Against Medical Advice Condition: Good - Discharge Instructions Follow Up With: NONE,PCP [Primary Care Provider] -
== END 2019-05-15 01:21 | disposition left against medical advice (07) | DRG 347 ==
LOC: 3BNU 13:17 → EMEROOARM 13:17 → 3BNU 18:28
PROVIDERS: ADMIT Internal Medicine; ATTEND Student in an Organized Health Care Education/Training Program